=== PATIENT | female | born 1990 | race Caucasian/White ===

== ENCOUNTER 2017-05-17 09:00 | Inpatient (IN) | payer BC ==
[2017-05-17 09:43] VITALS: BMI 34.7
[2017-05-17] MEDS: Lactated Ringer's 1,000 ML IV SCH ×3 (10:08→18:28)
[2017-05-17] MEDS ORDERED: Bupivacaine 20 ML, Fentanyl 400 MCG in Sodium Chloride 0.9% 72 ML EPIDURAL SCH (10:30)
[2017-05-17] MEDS ORDERED: Ondansetron HCl/PF 4 MG/2 ML Vial IVP PRN ×3 (10:42→21:08)
[2017-05-17] MEDS ORDERED: Docusate 100 MG CAP PO PRN (10:42)
[2017-05-17] MEDS ORDERED: Misoprostol 200 MCG TAB PR PRN (10:42)
[2017-05-17] MEDS ORDERED: LR / Pitocin 40 units/1000 ml 1,000 ML IV PRN (10:42)
[2017-05-17] MEDS ORDERED: Promethazine HCl 25 MG/ML VIAL IM PRN ×2 (10:42→12:43)
[2017-05-17] MEDS ORDERED: Ibuprofen 800 MG TAB PO PRN (10:42)
[2017-05-17] MEDS ORDERED: Zolpidem Tartrate 5 MG TAB PO PRN ×2 (10:42→21:08)
[2017-05-17] MEDS ORDERED: HYDROcodone/Acetaminophen 5/325 mg Tablet PO PRN ×2 (10:42)
[2017-05-17] MEDS ORDERED: Lidocaine 1% (PF) 30 ML VIAL SC PRN (10:42)
[2017-05-17] MEDS ORDERED: Diphenoxylate HCl/Atropine Tablet PO PRN ×2 (10:42)
[2017-05-17] MEDS ORDERED: Acetaminophen 500 MG TAB PO PRN (10:42)
[2017-05-17 10:58] LABS: Hemoglobin 10.7 g/dL (12.0-16.0); Mean Corpuscular HGB CONC 33.9 g/dL (32.0-36.0); Mean Corpuscular Hemoglobin 27.4 pg (27.0-31.0); Mean Corpuscular Volume 80.9 fl (81.0-99.0); Mean Platelet Volume 8.6 fL (7.4-10.4); Platelet Count 289 thou/uL (130-400); RBC Distribution Width 14.6 % (11.5-14.5); Red Blood Cell (RBC) Count 3.89 mill/uL (4.20-5.40); White Blood Cell (WBC) Count 9.3 thou/uL (4.8-10.8)
[2017-05-17 11:46] LABS: Syphilis Antibody Nonreactive (Nonreactive); Syphilis Antibody Index 0.11 S/CO (<1.00 Non-Reactive)
[2017-05-17 11:48] LABS: HBSAg Index 0.13 S/CO (0-0.99); Hep B Surf Ag Non-Reactive S/CO (NonReactive)
[2017-05-17] MEDS ORDERED: Acetaminophen 325 MG TAB PO PRN (12:43)
[2017-05-17] MEDS ORDERED: Eucerin (Mineral Oil/Petrolatum,White) 30 gm Jar TOP PRN (12:43)
[2017-05-17] MEDS ORDERED: Naloxone HCl 0.4 mg/ml Vial IVP PRN ×2 (12:43)
[2017-05-17] MEDS ORDERED: ePHEDrine/0.9% NaCl/PF SYRINGE 50 mg/10 ml SLOW IVP PRN (12:43)
[2017-05-17] MEDS ORDERED: diphenhydrAMINE 50 MG/ML VIAL IVP PRN (12:43)
[2017-05-17] MEDS ORDERED: Lactated Ringer's 500 ML IV PRN (12:43)
[2017-05-17] MEDS ORDERED: Communication Order-Pharmacy FS SCH (12:45)
[2017-05-17] MEDS ORDERED: Fentanyl 4mcg/Marcaine 0.1% Cassette 100 ML EPIDURAL SCH (12:45)
[2017-05-17] MEDS ORDERED: LR 500 ML/Oxytocin 10 units 500 ML ONE (16:20)
[2017-05-17] MEDS ORDERED: NS w/ Oxytocin 10 units 500 ML IV SCH ×2 (16:30→16:31)
[2017-05-17] MEDS ORDERED: Lanolin Ointment 7 GM TUBE TOP PRN (21:08)
[2017-05-17] MEDS ORDERED: Benzocaine/Menthol 20-0.5% 60 ML CAN TOP PRN (21:08)
[2017-05-17] MEDS ORDERED: Bisacodyl 10 MG SUPP PR PRN (21:08)
[2017-05-17] MEDS ORDERED: Acetaminophen/Codeine 30-300mg Tablet PO PRN ×2 (21:08)
[2017-05-17] MEDS ORDERED: Adacel (T-DAP) 0.5 ML VIAL IM ONE (21:08)
[2017-05-17] MEDS ORDERED: Milk Of Magnesia 30 ML UDCUP PO PRN (21:08)
[2017-05-17] MEDS ORDERED: Preparation H Ointment 28 GM TUBE PR PRN (21:08)
[2017-05-17] MEDS ORDERED: diphenhydrAMINE 25 MG CAP PO PRN (21:08)
[2017-05-17] MEDS ORDERED: LR / Pitocin 40 units/1000 ml 1,000 ML IV SCH (21:15)
[2017-05-17] MEDS ORDERED: Lidocaine 2% MPF 10 ML AMP (For Epidural Use) ONE (22:22)
[2017-05-17] MEDS ORDERED: Bupivacaine 0.25% HCL 30 ML VIAL ONE (22:22)
[2017-05-18] MEDS: Ibuprofen 800 MG TAB PO SCH ×5 (00:43→17:10)
[2017-05-18 05:26] LABS: Hemoglobin 9.9 g/dL (12.0-16.0); Mean Corpuscular HGB CONC 33.3 g/dL (32.0-36.0); Mean Corpuscular Hemoglobin 27.3 pg (27.0-31.0); Mean Platelet Volume 8.2 fL (7.4-10.4); Platelet Count 265 thou/uL (130-400); RBC Distribution Width 14.4 % (11.5-14.5); Red Blood Cell (RBC) Count 3.63 mill/uL (4.20-5.40); White Blood Cell (WBC) Count 18.2 thou/uL (4.8-10.8)
[2017-05-18] MEDS: Ferrous Sulfate 325 MG TAB PO SCH ×2 (09:42→17:10)
[2017-05-18] MEDS: Prenatal Vitamin 1 TAB PO SCH (09:42)
[2017-05-18] MEDS: Docusate Calcium (SURFAK) 240 MG CAP PO SCH (09:43)
[2017-05-19] MEDS: Docusate Calcium (SURFAK) 240 MG CAP PO SCH ×2 (00:31→09:06)
[2017-05-19] MEDS: Ibuprofen 800 MG TAB PO SCH ×3 (00:32→09:06)
[2017-05-19 08:35] VITALS: BP 117/56; TEMP 98.3
[2017-05-19] MEDS: Prenatal Vitamin 1 TAB PO SCH (09:05)
[2017-05-19] MEDS: Ferrous Sulfate 325 MG TAB PO SCH (09:06)
== END 2017-05-19 12:55 | disposition home or self-care (01) | DRG 775 ==
LOC: L&D 09:00 → 3SW 23:30
PROVIDERS: ADMIT Obstetrics & Gynecology; ATTEND Obstetrics & Gynecology
PROC: 10E0XZZ Delivery of Products of Conception, External Approach (ICD-10-PCS; principal; 2017-05-17)
PROC: 0KQM0ZZ Repair Perineum Muscle, Open Approach (ICD-10-PCS; 2017-05-17)
PROC: 10907ZC Drainage of Amniotic Fluid, Therapeutic from Products of Conception, Via Natural or Artificial Opening (ICD-10-PCS; 2017-05-17)
PROC: 0W8NXZZ Division of Female Perineum, External Approach (ICD-10-PCS; 2017-05-17)
DX: O70.1 Second degree perineal laceration during delivery (principal); Z37.0 Single live birth; Z3A.37 37 weeks gestation of pregnancy
CPT/HCPCS: 36415; 51702; 85027; 86780; 87340; J2001; J2405; J3010; J3490; J7050; J7120; S0020